=== PATIENT | female | born 1985 | race Caucasian/White ===

== ENCOUNTER 2016-09-05 09:13 | Inpatient (IN) | payer OTHER ==
[~2016-09-05] VITALS: Ht 157.5 cm; Wt 105.2 kg
[2016-09-05 10:37] LABS: HEMOGLOBIN 9.3 gm/dl (12.3-15.3); RED BLOOD COUNT 3.72 M/UL (4.00-5.10); WHITE BLOOD COUNT 10.7 K/UL (4.5-11.0)
[2016-09-06 03:09] LABS: HEMOGLOBIN 8.2 gm/dl (12.3-15.3)
== END 2016-09-07 15:02 | disposition home or self-care (01) | DRG 775 ==
LOC: GENOP 09:13 → OB 10:23
PROVIDERS: Obstetrics & Gynecology; ADMIT Obstetrics & Gynecology
DX: O13.4 Gestational [pregnancy-induced] hypertension without significant proteinuria, complicating childbirth (principal); O24.429 Gestational diabetes mellitus in childbirth, unspecified control; Z3A.38 38 weeks gestation of pregnancy; Z37.0 Single live birth; O75.89 Other specified complications of labor and delivery; M54.40 Lumbago with sciatica, unspecified side; D50.9 Iron deficiency anemia, unspecified; Z80.49 Family history of malignant neoplasm of other genital organs; Z80.9 Family history of malignant neoplasm, unspecified; Z82.49 Family history of ischemic heart disease and other diseases of the circulatory system; Z83.3 Family history of diabetes mellitus
CPT/HCPCS: 36415; 51702; 81001; 82800; 83518; 85014; 85018; 85025; J2405; J2590; J2795; J3010; J7120